=== PATIENT | female | born 1950 | race Caucasian/White ===

== ENCOUNTER → 2022-02-06 14:45 | Outpatient (BNVA) | payer MEDICARE, MEDICAID, SELFPAY | PROVIDERS: PCP Internal Medicine; Visit Provider Nurse Practitioner Family | DX: G20 Parkinson's disease (principal); R41.3 Other amnesia | CPT/HCPCS: 99212 ==

== ENCOUNTER → 2022-08-06 12:59 | Outpatient (BNVA) | payer MEDICARE, MEDICAID, SELFPAY | PROVIDERS: PCP Internal Medicine; Visit Provider Nurse Practitioner Family | DX: G20 Parkinson's disease (principal); R41.3 Other amnesia; Z79.899 Other long term (current) drug therapy | CPT/HCPCS: 99212 ==

== ENCOUNTER → 2023-04-23 14:10 | Outpatient (BNVA) | payer MEDICARE, MEDICAID, SELFPAY | PROVIDERS: PCP Internal Medicine; Visit Provider Nurse Practitioner Family | DX: G20 Parkinson's disease (principal); R41.3 Other amnesia; M81.0 Age-related osteoporosis without current pathological fracture; E55.9 Vitamin D deficiency, unspecified; F41.9 Anxiety disorder, unspecified | CPT/HCPCS: 99212 ==

== ENCOUNTER 2024-01-15 11:36 | Outpatient (AMB) | payer MEDICARE, MEDICAID, SELFPAY ==
--- NOTE | 2024-01-15 11:37 | MHC.OFFVIS ---
Intake Vital Signs 01/15/24 11:38 Height 5 ft 1 in Weight 106 lb BMI 20.0 BP 114/74 Blood Pressure Location Rt brachial Position Sitting Pulse 64 Pulse Source Pulse Oximeter Pulse Oximetry (%) 100 Oxygen Delivery Method Room Air Intake Visit Reasons: 6m follow up-Conf Intake Note: Patient presents for 6 month follow up. everything's the same, just my nose leaking Allergies No Known Allergies Allergy (Verified 01/15/24 11:41) Medication List - Last Reconciled 01/15/24 by TALA Schwartz carbidopa-levodopa 25-100 mg 1 tab PO TID 90 days lorazepam 0.5 mg PO BEDTIME PRN 30 days paroxetine HCl 30 mg PO DAILY 30 days HPI HPI Comments History of Present Illness Details 73-yr-old female presents for f/u visit, accompanied by her sister. Pt denies any significant interval medical history changes. Pt's current PD medication regimen: Sinemet 1 tab tid- 11am, 3pm and 11pm Do medication effects last between doses: shaky between doses if she misses midday dose Do you notice your medications wearing off or kicking in: No ADL's: Ind Voice: Voice hoarseness chronic- stable. Swallowing: No issues. Her nose is prone to running- not specifically with or w/o food/drink. Deneis allergies. Cough: None Drooling: None Orthostatic lightheadedness: None Constipation: None Freezing: None Stiffness: None Tremor: Mostly LUE tremor, a bit in the RUE- stable Falls: None Hallucinations: None Memory: Stable Sleep: Sleeps well w/ Lorazepam Exercise: Walking, stretching. [facility] Medical History (Updated 01/17/24 @ 22:33 by TALA Schwartz) Parkinson's disease Vitamin D deficiency Osteoporosis Anxiety Surgical History No pertinent past surgical history Family History Sister Lung cancer Mother Cancer Social History Household Members: None Alcohol intake: current Alcohol intake frequency: does not drink Patient Tobacco Use Status: Never used Tobacco Review of Systems Const All systems reviewed & are unremarkable except as noted in HPI and below Physical Exam Vital Signs: Last Vital Signs Pulse 64 01/15/24 11:38 BP 114/74 01/15/24 11:38 Pulse Ox 100 01/15/24 11:38 Oxygen Delivery Method Room Air 01/15/24 11:38 BMI result Body Mass Index 20.0 Const General: cooperative and no acute distress Resp Effort & Inspection: normal respiratory effort and able to speak in complete sentences Neuro Other: General: patient oriented x3 Expression/face:? Mild left facial asymmetry/droop- more noticeable today.? Mild decreased facial expression. Voice:? Hoarse voice Tremor:? No Left upper extremity rest tremor today.?Mild lip tremor today. Bilateral upper extremity postural tremor, more so on left. Tone:? Mild left upper extremity tone Dyskinesia:? None FFM:? Mildly decreased on left Foot taps:? Mildly decreased, induces spread of movement into left hand Gait:? Stance easily, slight decreased left arm swing, good stride. Psych:? Pleasant affect Assessment & Plan Assessment & Plan (1) Parkinson's disease without dyskinesia: Code(s): G20.A1 - Parkinson's disease without dyskinesia, without mention of fluctuations (2) Memory changes: Code(s): R41.3 - Other amnesia (3) Rhinorrhea: Comment: likely d/t mild PD progression Code(s): J34.89 - Other specified disorders of nose and nasal sinuses Plan Continue carbidopa levodopa 25-100 mg 1 tab po TID- pt is not interested in increasing it at this time. Monitor runny nose. Advised to let us knwo if she develops any otehr new s/s- ROSAS, difficulty swallowing, etc. Increase regular physical and social activity- consider joining [facility], Monitor cognition. f/u in 9 months or sooner prn. Coding Level of Care Code Est Pt Level 4 (04827) Diagnoses Parkinson's disease without dyskinesia G20.A1 Memory changes R41.3 Rhinorrhea J34.89
[2024-01-15 11:38] VITALS: BP 114/74; PULSE 64; O2SAT 100
== END 2024-01-15 12:09 | disposition home or self-care (01) ==
PROVIDERS: PCP Internal Medicine; Visit Provider Nurse Practitioner Family
DX: G20.A1 Parkinson's disease without dyskinesia, without mention of fluctuations (principal); R41.3 Other amnesia; J34.89 Other specified disorders of nose and nasal sinuses
CPT/HCPCS: 99214

== ENCOUNTER → 2024-01-15 11:36 | Outpatient (BNVA) | payer MEDICARE, MEDICAID, SELFPAY | PROVIDERS: PCP Internal Medicine; Visit Provider Nurse Practitioner Family | DX: G20.A1 Parkinson's disease without dyskinesia, without mention of fluctuations (principal); R41.3 Other amnesia; J34.89 Other specified disorders of nose and nasal sinuses; M81.0 Age-related osteoporosis without current pathological fracture; E55.9 Vitamin D deficiency, unspecified; F41.9 Anxiety disorder, unspecified | CPT/HCPCS: 99212 ==

== ENCOUNTER 2024-10-17 13:02 | Outpatient (AMB) | payer MEDICARE, MEDICAID, SELFPAY ==
--- OUTSIDE RECORDS SUMMARY | 2024-10-17 13:06 | XMS_ITS | Data Portability ---
Author Organization [place] [facility] Address [address] [place] [id number] Care Team Providers Care Police Commissioner Name Role Phone DAVID VARELA Primary Care Provider [phone] Assessment Encounter Date Assessment Date Assessment LastModified by Organization Details LastModified Time 01/09/2019 01/09/2019 Overview/History : 68 yo female with no significant medical history who presents with complain of ankle pain after and injury that happened 3wk ago. Patient states that she fell down the stairs 3wk ago and injured her right ankle. She repots that after a fall she was not able to put weight on her right lower extremity, however, she did not seek medical attention untill today because she presumed it was an ankle sprain. She states that her ankle is getting better at this time but her family insisted for her to see a provider for evaluation. Patient reports that she is able to ambulate with a walker and ankle brace with some discomfort but states that pain increases when she takes brace off. Patient denied any other symptoms. Exam: elderly female who appears much younger than her chronological age; well appearing, no acute distress, non-toxic appearance heart sounds are regular rate and rhythm. No audible murmurs, rubs or gallops. Normal peripheral perfusion. lungs clear to auscultation; No respiratory distress; No wheezing, rhonchi, or rales. extremities with good range of motion of all major joints. Right lower extremity with tenderness over posterior edge of lateral malleolus; mild bruising noted over the malleolus. Distal Neurovascular function intact with brisk capillary refill. No pretibial pitting edema. DDx considered, but not limited to: ankle sprain ankle fracture ankle contusion Work up/Results: ankle x-ray pending results Plan/Discussion: - based on Bronson ankle rule assessment unable to rule out ankle fracture - ankle xray results pending; will notify patient about the results when available - advised patient that orthopedic referral will be facilitated if appropriate based on x-ray results - applied alejandro bandage and advised to wear ankle brace during wake hours - advised patient to keep weight of the injured extremity; use ice and elevate leg to help with pain; may take tylenol and ibuprofen as needed for pain - follow up with PCP as needed within 5-7 days or sooner if indicated - advised patient when to seek immediate medical attention/911/ED - patient expressed understanding and agrees to the plan of care. In order to obtain further information and compare any laboratory results/values, I have accessed patient records on the [employer]. This information was pertinent in my medical decision making today. Time On Scene with Patient: 00:31:01 [email or web address] Not available 01/09/2019 21:39:07 01/28/2019 01/28/2019 Overview/History : Sandra 68-year-old female who is new to [facility] was evaluated for complaints of increase urination over the past 4 days. She denies any fever, chills, sweats, abdominal pain, back pain, nausea, vomiting or any other complaints. Exam: Sandra elderly female in no acute distress. Lungs clear to auscultation bilaterally. Heart rate regular with no obvious murmurs. No abdominal pain. VAS x4. No CVA tenderness. Moving all extremities without difficulty DDx considered, but not limited to: Pyelonephritis. UTI. Kidney stone. Pyelonephritis unlikely as patient has no CVA tenderness or fever. Kidney stone than likely given no pain. Work up/Results: Urine dip positive for leukocytes and blood. Plan/Discussion: Patient's examined workup are consistent with UTI/cystitis. Patient will be treated with Macrobid 100 mg b.i.d. for 5 days. Patient instructed to take a probiotic with Macrobid. Instructed to increase her fluid intake. Discussed using acetaminophen/ib uprofen as needed for discomfort or fever. In order to obtain further information and compare any laboratory results/values, I have accessed patient records on the [employer]. This information was pertinent in my medical decision making today. Time On Scene with Patient: 00:26:23 [email or web address] Not available 01/28/2019 15:41:41 Plan of Treatment Reminders Order Date Submit Date Provider Last Modified By Organization Details Last Modified Time Details Appointments None recorded. Lab urinalysi s, dipstick 2018 [email or web address] [facility], [address] [place], [address], 13:55:34 Referral None recorded. Procedures None recorded. Surgeries None recorded. Imaging XR, ankle, 3 or more view 2018 [facility] (Imaging), [address] [place], [address], 17:30:47 Medication Orders Macrobid 100 mg capsule 2018 [id number], [address] [place] [address], [address], 13:55:36 Patient TargetsNo targets recorded. Patient Instructions Encounter Date Encounter Id Patient Instructions Last Modified By Organization Details Last Modified Time 01/09/2019 [id number] YOU WERE SEEN FO R RIGHT ANKLE PAIN; PLEASE, COMPLETE X-RAY DIRECTED. WE WILL NOTIFY YOU ONCE RESULTS ARE AVAILABLE. WE WILL FACILITATE THE REFERRAL TO [facility] [employer] IF YOU HAVE A FRACTURE. You may take acetaminophen (Tylenol) every 6 hrs for pain or fever not to exceed 3000mg in 24 hrs. You may alternate with Ibuprofen (Advil)400mg every 6 hrs not to exceed 2400mg in 24 hrs. ELEVATE YOUR LEG AND USE ICE TO HELP WITH PAIN AND HEALING; DO NOT PUT WEIGHT ON YOUR LEG UNTILL XRAY RESULTS ARE AVAILABLE. USE ANKLE BRACE DURING WAKE HOURS SEEK IMMEDIATE MEDICAL ATTENTION OR CALL 911 IF YOUR SYMPTOMS WORSEN OR IF YOU DEVELOP ANY NEW CONCERNING SYMPTOMS. [facility]. You do not appear to have a fracture or dislocation that requires immediate surgical intervention. However, small breaks or ligament tears may not be obvious on initial examination. Given this concern, we may have placed you in a temporary splint. If an xray is indicated, we will help direct you to the best option to obtain your imaging study. We have also given you follow up directions. Please follow up with your primary care physician or specialist as directed. If you develop any new or worsening symptoms and need after hours care, please go to nearest ER and/or call 911. If you have additional concerns or develop a change in your condition between 8am-10pm, please call [facility] at [phone] to help navigate your care. If you develop any new or worsening symptoms and need after hours care, please go to nearest ER and/or call 911. If you have additional concerns or develop a change in your condition between 8am-10pm, please call [facility] at [phone] to help navigate your care. Ankle Sprain An ankle sprain happens when one or more ligaments in your ankle joint stretch or tear. Ligaments are tough elastic-like tissues that connect bones. Ligaments support and keep your joints stable. Medicines: Unless you are allergic or have some other contraindication (for example, severe gastric ulcer disease or kidney disease) then you should use Ibuprofen regularly for 3 days. For adults, take 400 mg 3 times per day for 3 days and then STOP. Prolonged use of Ibuprofen can hurt the stomach and kidney. For children, consult weight-based dosing on the bottle. Prescription Pain Medicine: You may have been prescribed a strong opiate pain medicine. Use this for more severe pain. Do not drive, drink alcohol, operate heavy machinery or take other sedating medicines while you are using this medicine. Prescription pain medicines are constipating. While you are using this medicine, you may want to take an yzww-zih-rkxzrmb stool softener (like Ducosate Sodium) twice per day. Self Care: Activity: if you are able to bear weight with minimal pain, you may go ahead and do so and participate in your regular activities of daily living. However, if it is too painful to bear weight, then you should remain non-weight bearing until you can do so without pain or until you are re-evaluated by your regular MD or orthopedist. Early range of motion is important in recovery. So if you cannot bear weight, you should perform range of motion exercises by ? writing the alphabet with your big toe.? The Nurse Practitioner ([employer] FARMER) will show you how to do this. You may use crutches or a walker as needed. Avoid high impact activities such as running. If you are in a job that requires a lot of standing and walking or you are an athlete, you will need to see your MD for clearance prior to resuming these activities. There is no contraindication to working, but you may need to adjust your activities at work. Xrays: You may have been given a prescription for an outpatient xray. Your [facility] Nurse Practitioner will discuss how to obtain results of the xray. Ice: apply cold pack or ice bag 20 minutes every few hours for the first 48 hours for comfort. Use a protective layer such as a pillowcase in between the ice bag and you skin. Compression: The SHARE DAIRY FARMER may recommend an alejandro wrap for comfort and support for the next 1-2 weeks. Wear the alejandro when you are up and moving around. Do not wear it in bed. Elevation: For the first 2-3 days after injury, try to keep ankle elevated above the level of your heart as often as you can. Air-Cast: You may have been given a removable ankle splint called an aircast to help give your ankle stability. Wear this whenever you are up and walking around for the next 2 weeks. You may use an alejandro wrap under the aircast and you MAY wear the aircast in bed if you would like. Follow-up: You should make appointment for reevaluation by your regular MD or orthopedic doctor within 7 days. Seek Care Immediately If: 1) The pain gets suddenly worse or is not helped with xtsy-dty-gnecduy or prescription medications. 2) Your toes become cold, blue or numb 3) If you still cannot tolerate weight bearing one week after injury 4) If the swelling initially goes away and then returns several weeks later. If you develop any new or worsening symptoms and need after hours care, please go to nearest ER and/or call 911. If you have additional concerns or develop a change in your condition between 8am-10pm, please call [facility] at [phone] to help navigate your care. [email or web address] Not available 01/09/2019 21:40:07 01/28/2019 [id number] URINARY TRACT INFECTION INSTRUCTIONS BASIC INFORMATION Urinary tract infections(UTI) can involve any portion of the urinary tract. The most common presentation is a bladder infection/cystitis, which usually presents with urinary frequency, burning with urination, urgency, foul smelling cloudy urine and occasionally blood. Kidney infections are less frequent, but more serious, and present with fever, flank pain, malaise and sometimes shaking chills. UTI? s are common in women because of the female anatomy, and much less common in males. INSTRUCTIONS Drink plenty of fluid, water is best. Drinking fluids will help to flush the bacteria from your body. Urinate every 2-3 hours Wear cotton underwear and avoid Nylon, Spandex and Lycra which tend to trap moisture and thong underwear which may facilitate UTI? s. Avoid tub baths Avoid using Super Tampons Use only mild unscented soap to wash your genitals, such as Dove or Ivory, avoid heavily scented body washes. If you are sexually active urinate as soon as possible after intercourse. Yogurt and probiotics may help to establish a more healthy genital environment, and aid in prevention. MEDICATIONS 1.Antibiotics: Usually prescribed if you have a UTI, there are many different effective antibiotics available. It is important that you complete the course of antibiotics you are given. You should feel some improvement within 24-48 hours, if you do not it may be that the bacteria causing your infection is resistant to the prescribed medication. If a urine culture is obtained it will usually take at least 3-4 days to get the final result. 2. Anesthetic/Pain relievers: Phenazopyridine (Pyridium, Uribelle, AZO) is an anesthetic excreted in the urine. This medicine will turn your urine BRIGHT ORANGE! This is normal, and may stain your underwear can contacts. Take this medication as directed with food. 3. Tylenol and Ibuprofen can be helpful for the pain, fever and body aches that can be associated with a kidney infection. Please follow recommended dosing instructions on the bottle. FOLLOW UP 1. If your symptoms are not improving in 24-48 hours 2. If your symptoms are getting more severe 3. Any unusual vaginal discharge 4. Symptoms recur after you complete medication SEEK CARE IMMEDIATELY IF 1.You have shaking chills or temperature over 101.5 2. Severe flank pain 3. Persistent vomiting, unable to keep fluids or medicine down. 4. Worse despite medication. If you develop any new or worsening symptoms and need after hours care, please go to nearest ER and/or call 911. If you have additional concerns or develop a change in your condition between 8am-10pm, please call [facility] at [phone] to help navigate your care. [email or web address] Not available 01/28/2019 13:38:27 Reason for Referral None Reported. Results Created Date Observation Date Name Description Value Unit Range Abnormal Flag Note LastModifiedBy Organization Detail LastModifiedTime 01/29/2001/28/2019 urina lysis , dipst ick Appearance cloudy Not Available [facility] [address] [place], [address], 01/28/2019 13:38:28 01/29/2001/28/2019 urina lysis , dipst ick Color yellow Not Available [facility] [address] [place], [address], 01/28/2019 13:38:28 01/29/2001/28/2019 urina lysis , dipst ick Glucose negati ve Not Available [facility] [address] [place], [address], 01/28/2019 13:38:28 01/29/2001/28/2019 urina lysis , dipst ick Bilirubin negati ve Not Available [facility] [address] [place], [address], 01/28/2019 13:38:28 01/29/2001/28/2019 urina lysis , dipst ick Ketones NEG Not Available [facility] [address] [place], [address], 01/28/2019 13:38:28 01/29/2001/28/2019 urina lysis , dipst ick Sp. Glade 1.010 Not Available [facility] [address] [place], [address], 01/28/2019 13:38:28 01/29/2001/28/2019 urina lysis , dipst ick Blood ++ Not Available [facility] [address] [place], [address], 01/28/2019 13:38:28 01/29/2001/28/2019 urina lysis , dipst ick pH 6 Not Available [facility] [address] [place], [address], 01/28/2019 13:38:28 01/29/202019 urina lysis , dipst ick Protein negati ve Not Available [facility] [address] [place], [address], 01/28/2019 13:38:28 01/29/20 19 01/28/2019 urina lysis , dipst ick Urobilirubin negati ve Not Available [facility] [address] [place], [address], 01/28/2019 13:38:28 01/29/20 19 01/28/2019 urina lysis , dipst ick Nitrites NEG Not Available [facility] - [facility] [address] [place], [address], 01/28/2019 13:38:28 01/29/20 19 01/28/2019 urina lysis , dipst ick Leukocytes +++ Not Available [facility] [address] [place], [address], 01/28/2019 13:38:28 01/12/20 19 XR, ankle , 3 or more view No observ ation record ed. [address] (Imaging) [address] [place] [address], [id number], 01/11/2019 20:50:55 Result Notes None recorded. Procedures Surgical History None recorded. Imaging Results Imaging Date Name Status LastModified by Organiz ation Details LastModified Time 01/11/2019 XR, ankle, 3 or more view completed [address] (Imaging) [address] [place] [address], [address], 01/11/2019 20:50:55 Procedure Notes None recorded. Medical Equipment None Reported. Allergies No known drug allergies Medications Name Sig Start Date Stop Date Status Note LastModified by Organization Details LastModified Time alendronate 70 mg tablet 01/09 completed Not Available Not Available Not Available Macrobid 100 mg capsule Take 1 capsule every 12 hours by oral route. 2018 active Not Available Not Available Not Avai lable lorazepam 0.5 mg tablet active Not Available Not Available Not Available paroxetine 30 mg tablet active Not Available Not Available Not Available paroxetine 20 mg tablet 01/09 completed Not Available Not Available Not Available GaviLyte-G 236 gram-22.74 gram-6.74 gram-5.86 gram oral solution 01/09 completed Not Available Not Available Not Available Fluzone High-Dose (PF) 180 mcg/0.5 mL intramuscula r syringe 01/09 completed Not Available Not Available Not Available Vitals Date Recorded Oxygen saturation Oxygen saturation in Arterial blood by Pulse oximetry Heart rate Respiratory rate Body temperature Systolic blood pressure Diastolic blood pressure Provider Name and Address Organization Details Last Updated DateTime 9 96 % 96 % 72 /min 20 /min 99.3 [degF] 130 mm[Hg] 80 mm[Hg] Not Available [facility] 17:17:26 Date Recorded Heart rate Oxygen saturation Oxygen saturation in Arterial blood by Pulse oximetry Respiratory rate Body temperature Systolic blood pressure Diastolic blood pressure Provider Name and Address Organization Details Last Updated DateTime 9 92 /min 97 % 97 % 20 /min 100.9 [degF] 110 mm[Hg] 68 mm[Hg] Not Available [facility] 9 13:56:11 Social History Question Answer Notes LastModified by Organizat ion Details LastModified Time Tobacco Smoking Status Never Smoker SURESH SANDRA [address] [place], [place] [address], [place], [address], [place] [facility] 01/09/2019 17:17:40 How Many Days In The Past Year Have You Had A Heavy Drinking Consumption (4+ Female, 5+ Male)? 0 [email or web address] Information not available 01/09/2019 [facility] not available 01/09/2019 What Was The Date Of Your Most Recent Tobacco Screening? 01/28/2019 Information not available 05/26/2019 Sex: Unknown Functional Status None recorded. Mental Status None recorded. Family History Relationship Description Onset Age of this Age Resolved Age Notes LastModified by Organization Details LastModified Time Mother Hypertensive disorder [email or web address] Not available 2018 17:17:24 Medical History Condition Response Diabetes N Coronary Artery Disease N High Cholesterol N Cancer N Pulmonary Embolism N Stroke N Hypertension N Asthma N COPD N Depression Y Kidney Disease N Gynecological HistoryNo gynecological history recorded. Obstetrics History GPAL:G 0 P 0 0 0 0 Past Encounters Encounter ID Performer Location Encounter Start Date Encounter Closed Date Diagnosis/Indication Diagnosis SNOMED-CT Code Diagnosis ICD10 Code [id number] [facility] [address] [place] [address] 01/09/2019 17:13:56 01/21/2019 09:52:24 Injury of ankle 201352193 S99.911A [id number] TEENA GEORGES NP [facility] [address] [place] [address] 01/28/2019 13:35:36 01/28/2019 15:45:41 Urinary tract infectious disease 93864251 N39.0 Health Concerns Section Related Observation LastModified by Organization Detai ls LastModified Time None Recorded Concern Status LastModified by Organization Details LastModified Time None Recorded Advance Directives Directive None Recorded Payers Encounter Date Sequence Insurance Name Policy Number Policy Billy Covered Member ID Billy Member ID Guarantor Name 01/09/2019 1 [employer] - MED[employer]ARE ADVANTAGE PLAN (MEDICARE REPLACEMENT HMO) [id number] 2 Kalyani Stoddard [id number] Kalyani Stoddard 01/28/2019 1 [employer] - MEDICARE [employer]VANTAGE PLAN (MEDICARE REPLACEMENT HMO) [id number] Kalyani Stoddard [id number] Kalyani Stoddard Notes Date Note Type Note Provider Name and Address Organization Details Recorded Time 01/09/2019 text/html Ms. Stoddard is a 68 yo female new to and this provider who presents with complain of ankle pain after and injury that happened 3wk ago. Patient states that she fell down the stairs 3wk ago and injured her right ankle. She repots that after a fall she was not able to put weight on her right lower extremity, however, she did not seek medical attention untill today because she presumed it was an ankle sprain. She states that her ankle is getting better at this time but her family insisted for her to see a provider for evaluation. Patient reports that she is able to ambulate with a walker and ankle brace with some discomfort but states that pain increases when she takes brace off. Patient denied any other symptoms. SURESH SANDRA [address] [place], [address], [place] [facility] 01/09/2019 21:40:21 01/28/2019 text/html 68-year-old healthy female, with a past medical history of depression, who is known to [facility] was evaluated for complaints of urinary frequency over the past 3-4 days. At times she has felt as if she is slightly incontinent and reports increased urination. She denies any pain with urination or hematuria. She also denies any fever, chills, sweats, headache, nausea, vomiting, abdominal pain, back pain or any rashes. TEENA GEORGES NP [address] [place], [address], [place] [facility] 01/28/2019 15:41:52 OBGyn Episode No OBEpisode recorded.
--- NOTE | 2024-10-17 13:13 | MHC.OFFVIS ---
Vital Signs 10/17/24 13:17 Height 5 ft 1 in Weight 109 lb 4 oz BMI 20.6 BP 128/80 Blood Pressure Location Rt brachial Position Sitting Pulse 78 Pulse Source Pulse Oximeter Pulse Oximetry (%) 97 Oxygen Delivery Method Room Air Intake Visit Reasons: Follow up Intake Note: Patient presents for a 9 mo follow up for Parkinson's. Patient has no concerns. Male Impersonator Required: No Accompanied by: Self / Same As Patient Allergies No Known Allergies Allergy (Verified 10/17/24 13:17) Medication List - Last Reconciled 10/17/24 by TALA Schwartz carbidopa-levodopa 25-100 mg 1 tab PO TID 90 days lorazepam 0.5 mg PO BEDTIME PRN 30 days paroxetine HCl 30 mg PO DAILY 30 days HPI Comments Details: 73-yr-old female presents for f/u visit for Parkinson's. Pt denies any significant interval medical history changes. She had called the office since the last visit, was concerned that she was losing weight- wt was down to 102 lbs. She had been avoiding carbs and sweets, but since she has reintroduced carbs and some sweets in addition to her usual diet- lots of fruits/veggies- wt is now 109 lbs. In terms of her Parkinson's, she does not have any specific concerns. 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 Pt's current PD medication regimen: Sinemet 1 tab tid- 11am, 3pm and 11pm Do medication effects last between doses: shaky between doses if she misses midday dose Do you notice your medications wearing off or kicking in: No ADL's: Ind Voice: Voice hoarseness chronic. Patient states hoarseness started prior to Parkinson's diagnosis. She denies acid reflux, constipation, postnasal drip, usual allergies. She has never seen an ENT for this. Swallowing: No issues. Her nose is prone to running just a bit- not specifically with or w/o food/drink. Denies allergies. Cough: None Drooling: None Orthostatic lightheadedness: None Constipation: None Freezing: None Stiffness: None Tremor: Mostly LUE tremor, a bit in the RUE- stable Falls: None Hallucinations: None Memory: Stable Sleep: Sleeps well between 1:30am-10am- w/ Lorazepam Exercise: Walking, stretching. [facility] Medical History (Updated 10/17/24 @ 17:15 by TALA Schwartz) Parkinson's disease Vitamin D deficiency Osteoporosis Anxiety Surgical History No pertinent past surgical history Family History Sister Lung cancer Mother Cancer Social History Household Members: None Alcohol intake: current Alcohol intake frequency: does not drink Patient Tobacco Use Status: Never used Tobacco Physical Exam Vital Signs: Last Vital Signs Pulse 78 10/17/24 13:17 BP 128/80 10/17/24 13:17 Pulse Ox 97 10/17/24 13:17 Oxygen Delivery Method Room Air 10/17/24 13:17 BMI result Body Mass Index 20.6 Const General: cooperative and no acute distress Resp Effort & Inspection: normal respiratory effort and able to speak in complete sentences Neuro Other: General: patient oriented x3 Expression/face:? Mild left facial asymmetry/droop.? Mild decreased facial expression. Voice:? Hoarse voice Tremor:? Spread of movement LUE rest tremor.?Mild lip tremor today. Bilateral upper extremity postural tremor, more so on left. Tone:? Mild left upper extremity tone Dyskinesia:? None FFM:? Mildly decreased on left Foot taps:? Mildly decreased, induces spread of movement into left hand Gait:? Stance easily, slight decreased left arm swing, good stride. Psych:? Pleasant affect Assessment & Plan Assessment & Plan (1) Parkinson's disease without dyskinesia: Comment: 2020 Jennifer scan, positive. Code(s): G20.A1 - Parkinson's disease without dyskinesia, without mention of fluctuations Category: Medical (2) Rhinorrhea: Comment: likely d/t mild PD progression Code(s): J34.89 - Other specified disorders of nose and nasal sinuses Category: Medical (3) Hoarseness of voice: Code(s): R49.0 - Dysphonia Category: Medical Plan Reviewed Parkinson's diagnosis, patient's symptoms are more consistent with an idiopathic Parkinson's rather than a Lewy body dementia subtype Parkinson's. Continue carbidopa levodopa 25-100 mg 1 tab po TID- pt is not interested in increasing it at this time. Will request ENT consult for chronic hoarseness and mild rhinorrhea, question if ENT process versus parkinsonian symptoms. Continue regular physical and social activity. Monitor cognition. f/u in 9 months (patient's preference) or sooner prn. Orders: Referrals Ear/Nose/Throat Referral G20.A1 - Parkinson's disease without dyskinesia, without mention of fluctuations, J34.89 - Other specified disorders of nose and nasal sinuses, R49.0 - Dysphonia Medications: Refilled carbidopa-levodopa 25-100 mg 1 tab PO TID 90 days 270 tabs 1RF Coding Level of Care Code Est Pt Level 4 (08466) Diagnoses Parkinson's disease without dyskinesia G20.A1 Rhinorrhea J34.89 Hoarseness of voice R49.0
[2024-10-17 13:17] VITALS: BP 128/80; PULSE 78; O2SAT 97; BMI 20.6
== END 2024-10-17 14:01 | disposition home or self-care (01) ==
PROVIDERS: PCP Internal Medicine; Visit Provider Nurse Practitioner Family
DX: G20.A1 Parkinson's disease without dyskinesia, without mention of fluctuations (principal); J34.89 Other specified disorders of nose and nasal sinuses; R49.0 Dysphonia
CPT/HCPCS: 99214

== ENCOUNTER → 2024-10-17 13:02 | Outpatient (BNVA) | payer MEDICARE, MEDICAID, SELFPAY | PROVIDERS: PCP Internal Medicine; Visit Provider Nurse Practitioner Family | DX: G20.A1 Parkinson's disease without dyskinesia, without mention of fluctuations (principal); J34.89 Other specified disorders of nose and nasal sinuses; R49.0 Dysphonia | CPT/HCPCS: 99212 ==

== ENCOUNTER 2025-04-26 11:04 | Outpatient (AMB) | payer MEDICARE, MEDICAID, SELFPAY ==
[2025-04-26 11:50] VITALS: BP 110/76; PULSE 76; O2SAT 96; BMI 20.4
--- NOTE | 2025-04-26 11:50 | A.OFFVIS_ITS ---
Vital Signs 04/26/25 11:50 Height 5 ft 1 in Weight 108 lb BMI 20.4 BP 110/76 Blood Pressure Location Rt brachial Position Sitting Pulse 76 Pulse Source Pulse Oximeter Pulse Oximetry (%) 96 Oxygen Delivery Method Room Air Intake Visit Reasons: Follow Up 6mo Mold Builder Required: No Accompanied by: Self / Same As Patient Allergies No Known Allergies Allergy (Verified 04/26/25 11:51) Medication List - Last Reconciled 04/26/25 by Jenni Vargas, TALA carbidopa-levodopa 25-100 mg 1 tab PO TID 90 days lorazepam 0.5 mg PO BEDTIME PRN 30 days paroxetine HCl 30 mg PO DAILY 30 days HPI Comments Details: 73-yr-old female presents for f/u visit for Parkinson's. Pt denies any significant interval medical history changes. Though, today she notes that she has had a mild intermittent left lateral ankle swelling for the past year. She recently had an x-ray of the ankle, and has a follow-up with her ? PCP to discuss the results. In terms of her Parkinson's, she does not have any specific concerns. But she does ask to review her previous [facility] and to confirm that her diagnosis is consistent with Parkinson's diagnosis rather than Lewy body Parkinson's. Pt's current PD medication regimen: Sinemet 1 tab tid- 11am, 3pm and 11pm Do medication effects last between doses: shaky between doses if she misses midday dose Do you notice your medications wearing off or kicking in: No ADL's: Ind Voice: Voice hoarseness chronic. Patient states hoarseness started prior to Parkinson's diagnosis. She denies acid reflux, constipation, postnasal drip, usual allergies. She has not seen ENT-has an appointment for later this year. Swallowing: No issues. Her nose is prone to running just a bit- not specifically with or w/o food/drink. Denies allergies. Cough: None Drooling: None Orthostatic lightheadedness: None Constipation: None Freezing: None Stiffness: None Tremor: Mostly LUE tremor, a bit in the RUE- stable Falls: None Hallucinations: None Memory: Stable Mood: Good Sleep: Sleeps well between 1:30am-10am- w/ Lorazepam Exercise: Walking, stretching. [facility] Medical History (Updated 12/16/24 @ 17:15 by TALA Schwartz) Parkinson's disease Vitamin D deficiency Osteoporosis Anxiety Surgical History No pertinent past surgical history Family History Sister Lung cancer Mother Cancer Social History Household Members: None Alcohol intake: current Alcohol intake frequency: does not drink Patient Tobacco Use Status: Never used Tobacco Physical Exam Vital Signs: Last Vital Signs Pulse 76 04/26/25 11:50 BP 110/76 04/26/25 11:50 Pulse Ox 96 04/26/25 11:50 Oxygen Delivery Method Room Air 04/26/25 11:50 BMI result Body Mass Index 20.4 Const General: cooperative and no acute distress Resp Effort & Inspection: normal respiratory effort and able to speak in complete sentences Neuro Other: General: patient oriented x3 Expression/face:? Mild left facial asymmetry/droop.? Mild decreased facial expression. Voice:? Hoarse voice Tremor:? Spread of movement LUE rest tremor.?Mild lip tremor today. Bilateral upper extremity postural tremor, more so on left. Tone:? Mild left upper extremity tone Dyskinesia:? None FFM:? Mildly decreased on left Foot taps:? Mildly decreased, induces spread of movement into left hand Gait:? Stance easily, slight decreased left arm swing, good stride. Psych:? Pleasant affect Assessment & Plan Assessment & Plan (1) Parkinson's disease without dyskinesia: Comment: 2020 Jennifer scan, positive. Code(s): G20.A1 - Parkinson's disease without dyskinesia, without mention of fluctuations Category: Medical (2) Rhinorrhea: Comment: likely d/t mild PD progression Code(s): J34.89 - Other specified disorders of nose and nasal sinuses Category: Medical (3) Hoarseness of voice: Code(s): R49.0 - Dysphonia Category: Medical Plan Reviewed Parkinson's diagnosis again today, patient's symptoms are more consistent with an idiopathic Parkinson's rather than a Lewy body dementia subtype Parkinson's. Continue carbidopa levodopa 25-100 mg 1 tab po TID- pt is not interested in increasing it at this time. Continue lorazepam 0.5 mg at bedtime for sleep. ENT consult for chronic hoarseness and mild rhinorrhea-as scheduled, question if ENT process versus parkinsonian symptoms. Continue regular physical and social activity. Consider going to the [facility] in the fall-when she returns from her cruise to the [facility]] with her sister. Monitor cognition. Discussed that if left ankle workup is within normal limits, the left ankle swelling maybe secondary to her Parkinson's disease, as the asymmetric left- sided bradykinesia at times may cause an asymmetric lower extremity swelling. Reviewed warning signs to seek urgent medical attention, such as unilateral leg swelling associated with redness, warmth, pain. f/u in 9 months (patient's preference) or sooner prn. Coding Level of Care Code Est Pt Level 4 (60670) Diagnoses Parkinson's disease without dyskinesia G20.A1 Rhinorrhea J34.89 Hoarseness of voice R49.0
== END 2025-04-26 12:29 | disposition home or self-care (01) ==
LOC: HO.HSMS 11:05
PROVIDERS: PCP Internal Medicine; Visit Provider Nurse Practitioner Family
DX: G20.A1 Parkinson's disease without dyskinesia, without mention of fluctuations (principal); J34.89 Other specified disorders of nose and nasal sinuses; R49.0 Dysphonia
CPT/HCPCS: 99214

== ENCOUNTER → 2025-04-26 11:04 | Outpatient (BNVA) | payer MEDICARE, MEDICAID, SELFPAY | PROVIDERS: PCP Internal Medicine; Visit Provider Nurse Practitioner Family | DX: G20.A1 Parkinson's disease without dyskinesia, without mention of fluctuations (principal); J34.89 Other specified disorders of nose and nasal sinuses; R49.0 Dysphonia | CPT/HCPCS: 99212 ==